=== PATIENT | female | born 1995 | race Caucasian/White ===

== ENCOUNTER 2016-06-06 17:50 | Emergency (ER) | payer OTHER ==
[~2016-06-06] VITALS: Ht 165.1 cm; Wt 56.2 kg
[2016-06-06 17:57] VITALS: Ht 165.1 cm; Wt 56.2 kg
[2016-06-06] MEDS ORDERED: XYLOCAINE 1%/SOD BICARB 20 ML VIAL INFIL ONE (18:15)
--- NOTE | 2016-06-06 18:36 | EMERGENCY ROOM VISIT NOTE ---
History First contact with patient: 18:00 Chief Complaint: LACERATION/CUT (SUT/DERMABOND) Stated Complaint: CUT HEAD Nursing Triage Summary: Triage note: Pt reports "i cut my right hand pretty bad when i fell in glass." pt reports happend at approx 1400 today. History of Present Illness The patient is a 20 year old female who presents to the Emergency Room with complaints of a laceration to her right hand. The injury happened approximately 4 hours ago after she fell onto glass. The patient denies any further underlying hand, wrist or forearm pain. She denies any paresthesias or numbness of the right hand or fingers. The patient is [id number], and rates her discomfort a 2 out of 10. Tetanus immunization is up-to-date. Review of Systems 6 system review was performed and was negative except for pertinent positives and negatives as indicated in history of present illness Past Medical/Surgical History Medical Problems: (1) No significant past medical history Surgical Problems: (1) History of wisdom tooth extraction Family History FH: hypertension Social History Smoking Status: Never Smoker Alcohol Use: none Marital Status: single Housing Status: lives with roommate Occupation Status: [employer] student Allergies Coded Allergies: No Known Allergies (Unverified , 03/09/15) Physical Exam Vital Signs Date Time Temp Pulse Resp B/P Pulse Ox O2 Delivery O2 Flow Rate FiO2 06/06/16 17:57 36.7 102 18 124/69 95 Room Air Physical Exam CONSTITUTIONAL: Healthy and well nourished. Alert and oriented X 3 with positive affect. HEENT: Normocephalic, atraumatic. Pupils equal, round and reactive. NECK: Full active range of motion without discomfort. MUSCULOSKELETAL: Examination of the dorsal and ulnar aspect of the hand shows a V-shaped laceration measuring 3 cm. No active bleeding or hematoma formation. She has other small superficial lacerations and abrasions that will not require further repair. The patient is able to flex and extend the fingers without discomfort or loss of strength with resistance. No tenderness to palpation about the wrist. Capillary refill is less than 2 seconds. INTEGUMENTARY: No rash or other significant dermatologic conditions noted. NEUROLOGIC: Right hand and fingers are sensory intact. Medical Decision & Procedures Procedure Laceration repair was performed under local anesthesia after receiving verbal consent from the patient. Using buffered 1% lidocaine without epinephrine, good local anesthesia was administered. The wounds were then cleansed peripherally with iodine, then the wounds were copiously pressure irrigated with normal saline. Exploration of the wounds does not show any underlying glass or other foreign debris. The wounds were then approximated using 5-0 nylon simple interrupted sutures 7. Bacitracin dressing was applied. ED Course Patient history and physical exam were performed. Nurse's notes were reviewed. Laceration repair was performed under local anesthesia. The patient was provided additional verbal and written wound care instructions. Ice and elevation for swelling. Ibuprofen or Tylenol as needed for pain. Suture removal in 12-14 days, or seek reevaluation sooner for any signs of wound infection. The with plan of care, voiced understanding of all discharge instructions, and denied any pain at the time of discharge. Impression Primary Impression: Laceration of right hand Departure Information Dispostion Home / Self-Care Forms HOME CARE DOCUMENTATION FORM, IMPORTANT VISIT INFORMATION Patient Instructions [facility] Additional Instructions Keep wound clean and dry. Do not allow any crusting or dried blood to accumulate on sutures. If this occurs, use a 1:1 solution of hydrogen peroxide/ water on a Q-tip to clean the wound. Use an antibiotic ointment for 3-4 days, then let wound dry. Suture removal in 12-14 days. Return sooner for any signs of infection (increasing redness, swelling, drainage). Ice and elevate for swelling and pain. Ibuprofen 600 mg and/or Tylenol 1000 mg every 6 hrs as needed for pain. Problem Qualifiers Primary Impression: Laceration of right hand Encounter type: initial encounter Qualified Codes: S61.411A - Laceration without foreign body of right hand, initial encounter
[2016-06-06 18:45] VITALS: BP 120/66; PULSE 99; TEMP 36.7; O2SAT 95
== END 2016-06-06 18:46 | disposition home or self-care (01) ==
LOC: C.EDB 17:50 → C.EDD 18:46
DX: S61.411A Laceration without foreign body of right hand, initial encounter (principal); W18.02XA Striking against glass with subsequent fall, initial encounter